=== PATIENT | female | born 2000 | race Two or more races ===

== ENCOUNTER 2020-07-22 16:07 | Inpatient (IN) | payer OTHER ==
[~2020-07-22] VITALS: Ht 160 cm; Wt 65.9 kg
[2020-07-22 16:58] VITALS: BP 133/83
[2020-07-22 17:21] LABS: BASOPHILS % (AUTO) 1 % (0-1); EOSINOPHILS % (AUTO) 1 % (1-7); LYMPHOCYTES % (AUTO) 28 % (22-44); MEAN CORPUSCULAR HEMOGLOBIN 33.1 pg (27.0-34.8); MEAN CORPUSCULAR HGB CONC 35.3 g/dL (32.4-35.8); MEAN PLATELET VOLUME 8.7 fL (7.4-10.4); MONOCYTES % (AUTO) 7 % (2-9); NEUTROPHILS % (AUTO) 63 % (42-75); PLATELET COUNT 180 x10^3/uL (130-400); RED BLOOD COUNT 3.58 x10^6/uL (3.82-5.3); RED CELL DISTRIBUTION WIDTH 13.5 % (9.6-15.2)
[2020-07-22 17:23] LABS: MICROSCOPIC INDICATED
[2020-07-22 17:32] LABS: ALANINE AMINOTRANSFERASE 16 U/L (12-78); ALBUMIN 2.6 g/dL (3.4-5.0); ANION GAP 9 mmol/L (5-15); CALCIUM 8.3 mg/dL (8.5-10.1); CHLORIDE 110 mmol/L (98-107); CREATININE 0.73 mg/dL (0.55-1.02)
[2020-07-22 17:38] LABS: ALKALINE PHOSPHATASE 259 U/L (45-117); BILIRUBIN,TOTAL 0.5 mg/dL (0.2-1.0); TOTAL PROTEIN 6.8 g/dL (6.4-8.2)
[2020-07-22] MEDS ORDERED: LACTATED RINGERS 1,000 ML IV SCH ×2 (18:00→21:30)
[2020-07-22] MEDS ORDERED: TERBUTALINE 1 MG/ML, 1ML IVPush PRN (18:00)
[2020-07-22] MEDS ORDERED: FENTANYL PF 100 MCG/2ML IVPush PRN (18:00)
[2020-07-22] MEDS ORDERED: FENTANYL PF 100 MCG/2ML IV PRN (18:00)
[2020-07-22] MEDS ORDERED: OXYTOCIN 30U/ 0.9% NaCL 500ML 500 ML IV PRN (18:00)
[2020-07-22] MEDS ORDERED: D5%-LACTATED RINGERS 1,000 ML IV SCH (18:00)
[2020-07-22] MEDS ORDERED: OXYTOCIN 30U/ 0.9% NaCL 500ML 500 ML IV ONE (18:00)
[2020-07-22] MEDS ORDERED: TERBUTALINE 1 MG/ML, 1ML SQ PRN (18:00)
[2020-07-22] MEDS ORDERED: CALCIUM CARBONATE 500 MG TAB.CHEW PO PRN (18:00)
[2020-07-22] MEDS ORDERED: ONDANSETRON 2MG/ML, 2ML IVPush PRN (18:00)
[2020-07-22] MEDS ORDERED: NEWBORN KIT ONE (18:38)
[2020-07-22] MEDS ORDERED: MISOPROSTOL 200 MCG TABLET ONE (18:38)
[2020-07-22] MEDS ORDERED: LIDOCAINE 1%, 20ML ONE (18:38)
[2020-07-22] MEDS ORDERED: FENTANYL/BUPIV./NS/PF 250 ML EPIDCONT ONE (20:56)
[2020-07-22] MEDS ORDERED: BUPIVACAINE 0.25% ONE (20:56)
[2020-07-22] MEDS ORDERED: FENTANYL/BUPIV./NS/PF 250 ML EPIDCONT SCH (21:30)
[2020-07-22] MEDS ORDERED: LACTATED RINGERS 1,000 ML IVBOLUS PRN (21:30)
[2020-07-22] MEDS ORDERED: EPHEDRINE 50 MG/ML, 1ML IVPush PRN (21:30)
[2020-07-23] MEDS ORDERED: CARBOPROST TROMETHAMINE 250 MCG/ML, 1ML IM PRN (01:30)
[2020-07-23] MEDS ORDERED: SIMETHICONE 80 MG CHEW TAB PO PRN (01:30)
[2020-07-23] MEDS ORDERED: ONDANSETRON 2MG/ML, 2ML IV PRN (01:30)
[2020-07-23] MEDS ORDERED: MISOPROSTOL 200 MCG TABLET PR PRN (01:30)
[2020-07-23] MEDS ORDERED: ACETAMINOPHEN 325 MG TABLET PO PRN ×2 (01:30)
[2020-07-23] MEDS ORDERED: DIPH,PERTUSS(ACELL),TET VAC/PF NC IM-VACC PRN (01:30)
[2020-07-23] MEDS ORDERED: METHYLERGONOVINE 0.2 MG/ML IM PRN (01:30)
[2020-07-23] MEDS ORDERED: OXYcodone/APAP 5/325MG TABLET PO PRN (01:30)
[2020-07-23] MEDS: OXYTOCIN 30U/ 0.9% NaCL 500ML 500 ML IV SCH ×4 (02:52→23:17)
[2020-07-23 03:00] VITALS: BP 133/87
[2020-07-23] MEDS: IBUPROFEN 600 MG TABLET PO PRN ×4 (04:45→23:12)
[2020-07-23 07:54] VITALS: BP 126/83
[2020-07-23] MEDS: DOCUSATE 100 MG CAPSULE PO PRN ×2 (08:03→19:21)
[2020-07-23] MEDS: PRENATAL VIT/IRON/FA 1 EACH TABLET PO SCH (08:04)
[2020-07-23 09:12] LABS: BASOPHILS % (AUTO) 1 % (0-1); EOSINOPHILS % (AUTO) 0 % (1-7); LYMPHOCYTES % (AUTO) 22 % (22-44); MEAN CORPUSCULAR HEMOGLOBIN 33.6 pg (27.0-34.8); MEAN CORPUSCULAR HGB CONC 35.5 g/dL (32.4-35.8); MEAN PLATELET VOLUME 8.8 fL (7.4-10.4); MONOCYTES % (AUTO) 7 % (2-9); NEUTROPHILS % (AUTO) 70 % (42-75); PLATELET COUNT 168 x10^3/uL (130-400); RED BLOOD COUNT 3.44 x10^6/uL (3.82-5.3); RED CELL DISTRIBUTION WIDTH 12.8 % (9.6-15.2)
[2020-07-23 12:50] VITALS: BP 140/77
[2020-07-23 16:59] VITALS: BP 117/97
[2020-07-23 19:15] VITALS: BP 120/78
[2020-07-23 23:37] VITALS: BP 118/78
[2020-07-24] MEDS: IBUPROFEN 600 MG TABLET PO PRN ×2 (04:58→11:34)
[2020-07-24] MEDS: OXYcodone/APAP 5/325MG TABLET PO PRN ×2 (05:21→11:40)
[2020-07-24 07:50] VITALS: BP 120/82
[2020-07-24] MEDS: DOCUSATE 100 MG CAPSULE PO PRN (08:01)
[2020-07-24] MEDS: PRENATAL VIT/IRON/FA 1 EACH TABLET PO SCH (08:01)
[2020-07-24] MEDS ORDERED: IBUP-1222 PO (11:38)
== END 2020-07-24 14:20 | disposition home or self-care (01) | DRG 807 ==
LOC: LDOP 16:07 → LDIP 17:51 → 2NW 07-23 03:33
PROVIDERS: ADMIT Obstetrics & Gynecology; ATTEND Obstetrics & Gynecology
PROC: 10E0XZZ Delivery of Products of Conception, External Approach (ICD-10-PCS; principal; 2020-07-23)
PROC: 10907ZC Drainage of Amniotic Fluid, Therapeutic from Products of Conception, Via Natural or Artificial Opening (ICD-10-PCS; 2020-07-23)
DX: O14.04 Mild to moderate pre-eclampsia, complicating childbirth (principal); Z37.0 Single live birth; Z3A.39 39 weeks gestation of pregnancy; Z20.822 Contact with and (suspected) exposure to COVID-19; Z23 Encounter for immunization
CPT/HCPCS: 36415; 80053; 81001; 82570; 84156; 84550; 85025; 86592; 86850; 86900; 87635; G0378; J2405; J3010; J2590; J7120